=== PATIENT | female | born 1970 | race Caucasian/White ===

== ENCOUNTER 2023-06-05 13:54 | Observation (INO) ==
[2023-06-05 17:00] LABS: BASOPHILS # (AUTO) 0.1 X10^3/uL (0.0-0.1); BASOPHILS % (AUTO) 0.6 % (0.2-1.0); EOSINOPHILS # (AUTO) 0.1 x10^3/uL (0.0-0.2); EOSINOPHILS % (AUTO) 1.2 % (0.9-2.9); HEMATOCRIT 39.5 % (36.0-47.0); HEMOGLOBIN 13.2 g/dL (12.0-16.0); LYMPHOCYTES # (AUTO) 1.7 X10^3/uL (1.3-2.9); LYMPHOCYTES % (AUTO) 20.6 % (21.0-51.0); MEAN CORPUSCULAR HGB CONC 33.4 g/dL (33.0-35.0); MEAN CORPUSCULAR VOLUME 92.9 fL (80.0-100.0); MEAN PLATELET VOLUME 6.8 fL (7.4-11.0); MONOCYTES # (AUTO) 0.6 x10^3/uL (0.3-0.8); MONOCYTES % (AUTO) 7.8 % (0.0-13.0); NEUTROPHILS # (AUTO) 5.6 x10^3/uL (2.2-4.8); NEUTROPHILS % (AUTO) 69.8 % (42.0-75.0); PLATELET COUNT 354 X10^3/uL (150.0-450.0); RED BLOOD COUNT 4.26 X10^6/uL (3.5-5.4); RED CELL DISTRIBUTION WIDTH 12.4 % (11.6-16.5); WHITE BLOOD COUNT 8.1 X10^3/uL (3.6-10.0)
[2023-06-05] MEDS ORDERED: VANCOMYCIN IV *PREMIX 1 G/200 ML BAG 1 G/200 ML PIGGYBACK IV SCH ×2 (17:00)
[2023-06-05 17:10] LABS: ALANINE AMINOTRANSFERASE 14 Units/L (12-78); ALKALINE PHOSPHATASE 152 Units/L (46-116); ASPARTATE AMINO TRANSFERASE 14 Units/L (15-37); BLOOD UREA NITROGEN 9 mg/dL (7-18); CALCIUM 8.9 mg/dL (8.5-10.1); CHLORIDE 103 mmol/L (98-107); COR CA(FOR HYPOALB) 9.7 mg/dL (8.5-10.1); GLUCOSE 95 mg/dL (65-99); POTASSIUM 3.7 mmol/L (3.5-5.1); SODIUM 137 mmol/L (136-145); TOTAL PROTEIN 7.4 g/dL (6.4-8.2); eGFR NON BLACK RACES > 60 (>60)
[2023-06-05] MEDS: NICOTINE PATCH TD SCH (18:12)
[2023-06-05] MEDS ORDERED: NORCO 5/325 MG TAB PO PRN (20:27)
[2023-06-06] MEDS ORDERED: PATIENT'S HOME MEDICATION (Oxycodone-Acetaminophen 10-325 mg tablet) PO PRN (02:13)
[2023-06-06] MEDS ORDERED: ATIVAN TAB 0.5 MG PO PRN (02:13)
--- NOTE | 2023-06-06 02:13 | DR.H&P ---
H&P History & Physical for Day of: H&P Date: 06/05/23 Chief Complaint Chief Complaint: face infection Allergies Allergies Allergy/AdvReac Type Severity Reaction Status Date / Time No Known Drug Allergies Allergy Unknown Verified 12/13/22 09:13 History of Present Illness History of Present Illness: Pt is a 52 year old female directly admitted from [facility] after presenting with facial cellulitis of the nasal bridge that was weeping and had discharge. It was noted significant enough that it is causing erosion of the nasal bridge. She finished course of bactrim without improvement. Denies fevers, chills. Labs: Wbc 8.1, Hgb 13.2, Plt 354, Na 137, K 3.7, Creatinine 0.60, GLucose 95. Wound culture was obtained. Pt was started on IV antibiotics Vancomycin. General surgery-Dr Berrios was consulted. Will restart home medications. Keep NPO after midnight. Otherwise continue to closely monitor and follow up labs in the morning. Family History Family Medical History: Cancer and Hypertension Social History Does patient currently use any type of tobacco product: Yes Have you used tobacco products in the last 12 months: Yes Type of Tobacco Use: Cigarettes How many years tobacco product used: 10 Does any household member use tobacco: Yes Alcohol Use: None Drug Use: None Labs 06/05/23 16:48 06/05/23 16:48 Labs: 06/05/23 18:00 Nose Wound Gram Stain - Final Laboratory WBC 8.1 X10^3/uL (3.6-10.0) 06/05/23 16:48 RBC 4.26 X10^6/uL (3.5-5.4) 06/05/23 16:48 Hgb 13.2 g/dL (12.0-16.0) 06/05/23 16:48 Hct 39.5 % (36.0-47.0) 06/05/23 16:48 MCV 92.9 fL (80.0-100.0) 06/05/23 16:48 MCH 31.0 pg (27.0-34.0) 06/05/23 16:48 MCHC 33.4 g/dL (33.0-35.0) 06/05/23 16:48 RDW 12.4 % (11.6-16.5) 06/05/23 16:48 Plt Count 354 X10^3/uL (150.0-450.0) 06/05/23 16:48 MPV 6.8 fL (7.4-11.0) L 06/05/23 16:48 Neut % (Auto) 69.8 % (42.0-75.0) 06/05/23 16:48 Lymph % (Auto) 20.6 % (21.0-51.0) L 06/05/23 16:48 [place] % (Auto) 7.8 % (0.0-13.0) 06/05/23 16:48 Eos % (Auto) 1.2 % (0.9-2.9) 06/05/23 16:48 Baso % (Auto) 0.6 % (0.2-1.0) 06/05/23 16:48 Neut # (Auto) 5.6 x10^3/uL (2.2-4.8) H 06/05/23 16:48 Lymph # (Auto) 1.7 X10^3/uL (1.3-2.9) 06/05/23 16:48 [place] # (Auto) 0.6 x10^3/uL (0.3-0.8) 06/05/23 16:48 Eos # (Auto) 0.1 x10^3/uL (0.0-0.2) 06/05/23 16:48 Baso # (Auto) 0.1 X10^3/uL (0.0-0.1) 06/05/23 16:48 Absolute Nucleated RBC 0.0 /100WBC 06/05/23 16:48 Sodium 137 mmol/L (136-145) 06/05/23 16:48 Corrected Sodium TNP 06/05/23 16:48 Potassium 3.7 mmol/L (3.5-5.1) 06/05/23 16:48 Chloride 103 mmol/L (98-107) 06/05/23 16:48 Carbon Dioxide 31.0 mmol/L (21-32) 06/05/23 16:48 BUN 9 mg/dL (7-18) 06/05/23 16:48 Creatinine 0.60 mg/dL (0.55-1.02) 06/05/23 16:48 Est GFR (MDRD) Af Amer > 60 (>60) 06/05/23 16:48 Est GFR (MDRD) Non-Af > 60 (>60) 06/05/23 16:48 Glucose 95 mg/dL (65-99) 06/05/23 16:48 Calcium 8.9 mg/dL (8.5-10.1) 06/05/23 16:48 Corrected Calcium 9.7 mg/dL (8.5-10.1) 06/05/23 16:48 Total Bilirubin 0.30 mg/dL (0.2-1.0) 06/05/23 16:48 AST 14 Units/L (15-37) L 06/05/23 16:48 ALT 14 Units/L (12-78) 06/05/23 16:48 Alkaline Phosphatase 152 Units/L (46-116) H 06/05/23 16:48 Total Protein 7.4 g/dL (6.4-8.2) 06/05/23 16:48 Albumin 3.0 g/dL (3.4-5.0) L 06/05/23 16:48 Globulin 4.4 g/dL (2.5-4.5) 06/05/23 16:48 Albumin/Globulin Ratio 0.7 Ratio (1.1-2.1) L 06/05/23 16:48 Review of Systems Constitutional: No Symptoms Reported Eyes: No Symptoms Reported ENT: No Symptoms Reported Respiratory: No Symptoms Reported Cardiovascular: No Symptoms Reported Gastrointestinal: No Symptoms Reported Genitourinary: No Symptoms Reported Musculoskeletal: No Symptoms Reported Skin: Wound Neurological: No Symptoms Reported Physical Exam Vital Signs: Vital Signs Temperature 97.8 F Temperature 98.1 F Pulse Rate [Apical] 73 Pulse Rate [Apical] 73 Respiratory Rate 20 Respiratory Rate 19 Respiratory Rate 22 Respiratory Rate 20 Blood Pressure [Left Arm] 128/82 Blood Pressure [Left Arm] 128/59 O2 Sat by Pulse Oximetry 95 O2 Sat by Pulse Oximetry 93 Oriented: Normal Eyes: Normal Ear: Normal Nose: Normal Throat: Normal Respiratory: Clear Throughout Cardiovascular: Normal : Normal Auscultation: Bowel Sounds: Normal Palpation: Normal Tenderness: Normal Skin: Wound (erythema and erosion of face and nasal bridge) Musculoskeletal: Normal Psychiatric: Normal Mood Description: Calm and Appropriate Affect: Normal Speech Pattern: Clear and Appropriate Assessment/Plan (1) Facial cellulitis: Narrative Support Text: Wound culture pending IV vancomycin General surgery consulted. Status: Acute Review H&P Reviewed: Yes Patient was examined?: Yes
[2023-06-06 05:19] LABS: BASOPHILS % (AUTO) 0.5 % (0.2-1.0); EOSINOPHILS # (AUTO) 0.2 x10^3/uL (0.0-0.2); EOSINOPHILS % (AUTO) 2.4 % (0.9-2.9); HEMATOCRIT 37.9 % (36.0-47.0); HEMOGLOBIN 12.5 g/dL (12.0-16.0); LYMPHOCYTES # (AUTO) 2.4 X10^3/uL (1.3-2.9); LYMPHOCYTES % (AUTO) 34.2 % (21.0-51.0); MEAN CORPUSCULAR HEMOGLOBIN 30.7 pg (27.0-34.0); MEAN CORPUSCULAR HGB CONC 33.1 g/dL (33.0-35.0); MEAN CORPUSCULAR VOLUME 92.7 fL (80.0-100.0); MEAN PLATELET VOLUME 7.3 fL (7.4-11.0); MONOCYTES # (AUTO) 0.8 x10^3/uL (0.3-0.8); MONOCYTES % (AUTO) 12.1 % (0.0-13.0); NEUTROPHILS # (AUTO) 3.5 x10^3/uL (2.2-4.8); NEUTROPHILS % (AUTO) 50.8 % (42.0-75.0); PLATELET COUNT 317 X10^3/uL (150.0-450.0); RED BLOOD COUNT 4.09 X10^6/uL (3.5-5.4); WHITE BLOOD COUNT 6.9 X10^3/uL (3.6-10.0)
[2023-06-06 06:24] LABS: ALANINE AMINOTRANSFERASE 10 Units/L (12-78); ALBUMIN 2.6 g/dL (3.4-5.0); ALKALINE PHOSPHATASE 137 Units/L (46-116); ASPARTATE AMINO TRANSFERASE 17 Units/L (15-37); BLOOD UREA NITROGEN 12 mg/dL (7-18); CALCIUM 8.9 mg/dL (8.5-10.1); CARBON DIOXIDE 27.5 mmol/L (21-32); CHLORIDE 106 mmol/L (98-107); CREATININE 0.53 mg/dL (0.55-1.02); GLUCOSE 95 mg/dL (65-99); POTASSIUM 3.9 mmol/L (3.5-5.1); SODIUM 139 mmol/L (136-145); TOTAL PROTEIN 6.6 g/dL (6.4-8.2); eGFR NON BLACK RACES > 60 (>60)
[2023-06-06] MEDS: NICOTINE PATCH TD SCH (08:11)
[2023-06-06 09:25] LABS: CREATININE 0.59 mg/dL (0.55-1.02)
[2023-06-06 09:43] LABS: VANCOMYCIN,TROUGH 3.1 ug/mL (15-20)
[2023-06-06] MEDS: VANCOMYCIN IV *PREMIX 1 G/200 ML BAG 1 G/200 ML PIGGYBACK IV SCH ×2 (11:30→21:03)
[2023-06-06] MEDS ORDERED: PERCOCET TAB 5/325 MG ONE (13:19)
[2023-06-06] MEDS: PERCOCET TAB 5/325 MG PO PRN ×2 (13:24→21:37)
--- NOTE | 2023-06-06 20:20 | PCM.PROG ---
Progress Note Progress Note for Day of Date of Exam: 06/06/23 Subjective Subjective: The patient reports the infected area on the bridge of her nose is much improved since yesterday. She is receiving IV vancomycin and we will continue this at this time. General surgery plans on doing some debridement later on and we will follow-up with results. We will continue her on IV vancomycin at this time. Repeat routine labs in AM. Past Medical Family Social History Allergies: Allergies No Known Drug Allergies Allergy (Unknown, Verified 12/13/22 09:13) Onset Date: 02/06/2022 Vital Signs and I&O's Vital Signs: Vital Signs Temperature 98.0 F Pulse Rate [Apical] 72 Respiratory Rate 18 Respiratory Rate 20 Blood Pressure [Left Arm] 149/73 O2 Sat by Pulse Oximetry 99 Intake and Output: Intake & Output 06/04/23 06/05/23 06/06/23 06/07/23 11:59 11:59 11:59 11:59 Intake Total 500 / 500 960 / 960 Balance 500 / 500 960 / 960 Physical Exam Oriented: Normal Eyes: Normal Ear: Normal Nose: Normal Throat: Normal Cardiovascular: Normal : Normal Auscultation: Bowel Sounds: Normal Tenderness: Normal Skin: Wound (erythema and erosion of face and nasal bridge) Musculoskeletal: Normal Psychiatric: Normal Mood Description: Calm and Appropriate Affect: Normal Speech Pattern: Clear and Appropriate Laboratory and Diagnostics 06/06/23 04:35 06/06/23 08:30 Labs: 06/05/23 18:00 Nose Wound Gram Stain - Final 06/05/23 18:00 Nose Wound Culture - Preliminary Laboratory WBC 6.9 X10^3/uL (3.6-10.0) 06/06/23 04:35 RBC 4.09 X10^6/uL (3.5-5.4) 06/06/23 04:35 Hgb 12.5 g/dL (12.0-16.0) 06/06/23 04:35 Hct 37.9 % (36.0-47.0) 06/06/23 04:35 MCV 92.7 fL (80.0-100.0) 06/06/23 04:35 MCH 30.7 pg (27.0-34.0) 06/06/23 04:35 MCHC 33.1 g/dL (33.0-35.0) 06/06/23 04:35 RDW 13.0 % (11.6-16.5) 06/06/23 04:35 Plt Count 317 X10^3/uL (150.0-450.0) 06/06/23 04:35 MPV 7.3 fL (7.4-11.0) L 06/06/23 04:35 Neut % (Auto) 50.8 % (42.0-75.0) 06/06/23 04:35 Lymph % (Auto) 34.2 % (21.0-51.0) 06/06/23 04:35 [place] % (Auto) 12.1 % (0.0-13.0) 06/06/23 04:35 Eos % (Auto) 2.4 % (0.9-2.9) 06/06/23 04:35 Baso % (Auto) 0.5 % (0.2-1.0) 06/06/23 04:35 Neut # (Auto) 3.5 x10^3/uL (2.2-4.8) 06/06/23 04:35 Lymph # (Auto) 2.4 X10^3/uL (1.3-2.9) 06/06/23 04:35 [place] # (Auto) 0.8 x10^3/uL (0.3-0.8) 06/06/23 04:35 Eos # (Auto) 0.2 x10^3/uL (0.0-0.2) 06/06/23 04:35 Baso # (Auto) 0.0 X10^3/uL (0.0-0.1) 06/06/23 04:35 Absolute Nucleated RBC 0.0 /100WBC 06/06/23 04:35 Sodium 139 mmol/L (136-145) 06/06/23 04:35 Corrected Sodium TNP 06/06/23 04:35 Potassium 3.9 mmol/L (3.5-5.1) 06/06/23 04:35 Chloride 106 mmol/L (98-107) 06/06/23 04:35 Carbon Dioxide 27.5 mmol/L (21-32) 06/06/23 04:35 BUN 12 mg/dL (7-18) 06/06/23 04:35 Creatinine 0.59 mg/dL (0.55-1.02) 06/06/23 08:30 Est GFR (MDRD) Af Amer > 60 (>60) 06/06/23 04:35 Est GFR (MDRD) Non-Af > 60 (>60) 06/06/23 04:35 Glucose 95 mg/dL (65-99) 06/06/23 04:35 Calcium 8.9 mg/dL (8.5-10.1) 06/06/23 04:35 Corrected Calcium 10.0 mg/dL (8.5-10.1) 06/06/23 04:35 Magnesium 2.0 mg/dL (2.0-2.9) 06/06/23 04:35 Total Bilirubin 0.20 mg/dL (0.2-1.0) 06/06/23 04:35 AST 17 Units/L (15-37) 06/06/23 04:35 ALT 10 Units/L (12-78) L 06/06/23 04:35 Alkaline Phosphatase 137 Units/L (46-116) H 06/06/23 04:35 Total Protein 6.6 g/dL (6.4-8.2) 06/06/23 04:35 Albumin 2.6 g/dL (3.4-5.0) L 06/06/23 04:35 Globulin 4.0 g/dL (2.5-4.5) 06/06/23 04:35 Albumin/Globulin Ratio 0.7 Ratio (1.1-2.1) L 06/06/23 04:35 Vancomycin Trough 3.1 ug/mL (15-20) L 06/06/23 08:30 Plan (1) Facial cellulitis: Status: Acute Plan: Continue IV vancomycin. Repeat routine labs in the a.m.
[2023-06-07] MEDS: VANCOMYCIN IV *PREMIX 1 G/200 ML BAG 1 G/200 ML PIGGYBACK IV SCH (05:51)
[2023-06-07] MEDS: PERCOCET TAB 5/325 MG PO PRN (05:51)
[2023-06-07 06:25] LABS: BASOPHILS % (AUTO) 0.3 % (0.2-1.0); EOSINOPHILS # (AUTO) 0.1 x10^3/uL (0.0-0.2); EOSINOPHILS % (AUTO) 2.3 % (0.9-2.9); HEMATOCRIT 37.3 % (36.0-47.0); HEMOGLOBIN 12.5 g/dL (12.0-16.0); LYMPHOCYTES # (AUTO) 2.6 X10^3/uL (1.3-2.9); LYMPHOCYTES % (AUTO) 43.3 % (21.0-51.0); MEAN CORPUSCULAR HGB CONC 33.4 g/dL (33.0-35.0); MEAN CORPUSCULAR VOLUME 92.7 fL (80.0-100.0); MEAN PLATELET VOLUME 7.3 fL (7.4-11.0); MONOCYTES # (AUTO) 0.6 x10^3/uL (0.3-0.8); MONOCYTES % (AUTO) 10.8 % (0.0-13.0); NEUTROPHILS # (AUTO) 2.6 x10^3/uL (2.2-4.8); NEUTROPHILS % (AUTO) 43.3 % (42.0-75.0); PLATELET COUNT 307 X10^3/uL (150.0-450.0); RED BLOOD COUNT 4.02 X10^6/uL (3.5-5.4)
[2023-06-07 07:01] LABS: ALANINE AMINOTRANSFERASE 11 Units/L (12-78); ALBUMIN 2.7 g/dL (3.4-5.0); ALKALINE PHOSPHATASE 138 Units/L (46-116); ASPARTATE AMINO TRANSFERASE 13 Units/L (15-37); BLOOD UREA NITROGEN 13 mg/dL (7-18); CALCIUM 8.5 mg/dL (8.5-10.1); CARBON DIOXIDE 25.4 mmol/L (21-32); CHLORIDE 105 mmol/L (98-107); COR CA(FOR HYPOALB) 9.5 mg/dL (8.5-10.1); COR NA(FOR HYPERGLY) 139 mmol/L (136-145); CREATININE 0.63 mg/dL (0.55-1.02); GLUCOSE 116 mg/dL (65-99); POTASSIUM 3.7 mmol/L (3.5-5.1); SODIUM 139 mmol/L (136-145); TOTAL PROTEIN 6.7 g/dL (6.4-8.2); eGFR NON BLACK RACES > 60 (>60)
[2023-06-07] MEDS ORDERED: PHARMACY COMMENT IV NR (08:00)
[2023-06-07] MEDS: NICOTINE PATCH TD SCH (09:59)
[2023-06-07 10:32] VITALS: BP 149/72; PULSE 57; RESP 18; TEMP 97.4; O2SAT 96
[2023-06-07] MEDS ORDERED: PHARMACY COMMENT IV ONE (13:30)
== END 2023-06-07 10:00 | disposition home or self-care (01) ==
LOC: MED/SURG
PROVIDERS: ADMIT Family Medicine; ATTEND Family Medicine
DX: B95.61 Methicillin susceptible Staphylococcus aureus infection as the cause of diseases classified elsewhere; L03.211 Cellulitis of face; L89.819 Pressure ulcer of head, unspecified stage